=== PATIENT | female | born 1995 | race Asian ===

== ENCOUNTER 2016-06-03 12:11 | Emergency (ER) | payer OTHER ==
[~2016-06-03] VITALS: Ht 152.4 cm; Wt 88.0 kg
[2016-06-03 12:40] VITALS: BP 150/89; TEMP 99
== END 2016-06-03 12:40 | disposition home or self-care (01) ==
LOC: ED 12:11
DX: H00.014 Hordeolum externum left upper eyelid (principal)
CPT/HCPCS: 99282

== ENCOUNTER → 2016-07-02 15:55 | Outpatient (CLI) | payer OTHER | END | disposition short-term general hospital (02) | LOC: AMB 15:55 | DX: Z04.3 Encounter for examination and observation following other accident (principal) ==

== ENCOUNTER 2016-12-27 21:42 | Emergency (ER) | payer OTHER ==
[~2016-12-27] VITALS: Ht 154.9 cm; Wt 88.0 kg
[2016-12-27 23:10] VITALS: BP 121/74; TEMP 98.3
== END 2016-12-27 23:12 | disposition home or self-care (01) ==
LOC: ED 21:42
DX: R10.84 Generalized abdominal pain (principal); Z33.1 Pregnant state, incidental
CPT/HCPCS: 81000; 99282

== ENCOUNTER 2017-02-07 03:09 | Outpatient (CLI) | payer OTHER | END 2017-02-07 03:27 | disposition short-term general hospital (02) | LOC: AMB 03:09 | DX: O60.03 Preterm labor without delivery, third trimester (principal); Z3A.39 39 weeks gestation of pregnancy | CPT/HCPCS: A0425; A0427 ==

== ENCOUNTER 2017-02-08 23:42 | Outpatient (CLI) | payer OTHER | END 2017-02-09 00:18 | disposition short-term general hospital (02) | LOC: AMB 23:42 | DX: O42.02 Full-term premature rupture of membranes, onset of labor within 24 hours of rupture (principal); Z3A.39 39 weeks gestation of pregnancy | CPT/HCPCS: A0425; A0427 ==

== ENCOUNTER 2017-11-03 19:16 | Emergency (ER) | payer OTHER ==
[~2017-11-03] VITALS: Ht 188 cm; Wt 98.0 kg
[2017-11-03 22:07] VITALS: BP 158/78; TEMP 98.2
== END 2017-11-03 22:22 | disposition home or self-care (01) ==
LOC: ED 19:16
DX: O46.91 Antepartum hemorrhage, unspecified, first trimester (principal); Z3A.10 10 weeks gestation of pregnancy
CPT/HCPCS: 99282

== ENCOUNTER 2017-11-06 22:16 | Emergency (ER) | payer OTHER ==
[~2017-11-06] VITALS: Ht 188 cm; Wt 98.0 kg
[2017-11-06 22:55] VITALS: BP 157/87; TEMP 98.6
== END 2017-11-06 22:55 | disposition home or self-care (01) ==
LOC: ED 22:16
DX: O46.8X1 Other antepartum hemorrhage, first trimester (principal); Z3A.01 Less than 8 weeks gestation of pregnancy
CPT/HCPCS: 99284

== ENCOUNTER 2021-02-24 15:29 | Emergency (ER) | payer OTHER ==
[~2021-02-24] VITALS: Ht 188 cm; Wt 98.0 kg
[2021-02-24 16:00] LABS: PLATELET COUNT 343 K/uL (152-353)
[2021-02-24 16:06] LABS: POTASSIUM 3.5 mmol/L (3.6-5.2); SODIUM 140 mmol/L (136-145)
[2021-02-24 16:08] LABS: PARTIAL THROMBOPLASTIN TIME 28.8 SECONDS (24.5-33.6)
[2021-02-24 17:08] VITALS: BP 133/72; TEMP 98.7
== END 2021-02-24 17:13 | disposition home or self-care (01) ==
LOC: ED 15:29
PROVIDERS: Hospitalist
DX: R07.89 Other chest pain (principal)
CPT/HCPCS: 80053; 81025; 82550; 83880; 84484; 85008; 85027; 85379; 85610; 85730; 93005; 99283

== ENCOUNTER 2021-02-24 23:16 | Emergency (ER) | payer OTHER ==
[~2021-02-24] VITALS: Ht 154.9 cm; Wt 98.0 kg
[2021-02-25 00:16] LABS: PARTIAL THROMBOPLASTIN TIME 30.4 SECONDS (24.5-33.6)
[2021-02-25 00:26] LABS: POTASSIUM 3.5 mmol/L (3.6-5.2)
[2021-02-25 00:45] LABS: PLATELET COUNT 230 K/uL (152-353)
[2021-02-25 02:18] VITALS: BP 125/71; TEMP 97.9
== END 2021-02-25 02:35 | disposition home or self-care (01) ==
LOC: ED 23:16
PROVIDERS: Hospitalist
DX: U07.1 COVID-19 (principal); R50.9 Fever, unspecified
CPT/HCPCS: 36415; 80053; 82550; 83880; 84484; 85008; 85027; 85610; 85730; 87502; 87635; 87651; 93005; 96372; 96374; 96375; 99284; J1650; J1885; J2930; Q9963; U0003

== ENCOUNTER 2021-02-26 10:27 | Outpatient (CLI) | payer OTHER ==
[~2021-02-26] VITALS: Ht 154.9 cm; Wt 92.5 kg
== END 2021-02-26 18:44 | disposition home or self-care (01) ==
LOC: INF 10:27
PROVIDERS: ATTEND Family Medicine
DX: Z23 Encounter for immunization (principal); U07.1 COVID-19
CPT/HCPCS: 96365; M0244